=== PATIENT | female | born 1970 | race Two or more races ===

== ENCOUNTER 2017-12-06 08:14 | Outpatient (CLI) | payer OTHER ==
[~2017-12-06 08:14] MED LIST: DICY20TA PO; HUMALOG100 U/ML SQ; LANTUS100 U/ML SQ; PROTONIX40 MG PO; ZANTAC300 MG PO; ZOFRAN4 MG PO
== END 2017-12-06 08:35 | disposition home or self-care (01) ==
LOC: MAMO-SONO 08:14
DX: N20.0 Calculus of kidney (principal)

== ENCOUNTER 2018-03-22 09:04 | Outpatient (CLI) | payer OTHER | END 2018-03-22 09:22 | disposition home or self-care (01) | LOC: LAB 09:04 | DX: E11.9 Type 2 diabetes mellitus without complications (principal); E78.4 Other hyperlipidemia ==

== ENCOUNTER → 2019-02-18 | Emergency (ER) | payer OTHER ==
[~2019-02-18] VITALS: Ht 162.6 cm; Wt 64.0 kg
== END | disposition home or self-care (01) ==
LOC: ER 21:48
DX: K52.9 Noninfective gastroenteritis and colitis, unspecified (principal); E11.9 Type 2 diabetes mellitus without complications